=== PATIENT | female | born 1970 | race Caucasian/White ===

== ENCOUNTER 2017-02-01 16:53 | Emergency (ER) | payer BC ==
[~2017-02-01] VITALS: Ht 162.6 cm; Wt 91.3 kg
[2017-02-01 18:16] LABS: HEMATOCRIT 36.3 % (36.0-46.0); MCH 30.9 PG (29.0-34.0); MCHC 34.7 G/DL (30.0-36.0); MEAN PLAT.VOLUME 10.7 uM^3 (9.5-12.4); PLATELET COUNT 228 K/uL (156-360); RBC DIS.WIDTH-CV 11.9 % (11.8-14.6); RBC DIS.WIDTH-SD 38.1 % (39-53); RED BLOOD COUNT 4.08 M/uL (3.80-5.20); WHITE BLOOD COUNT 8.9 K/uL (4.1-10.2)
[2017-02-01 18:25] LABS: CHLORIDE 105 mEq/L (99-109); POTASSIUM 3.8 mEq/L (3.7-5.4); SODIUM 140 mEq/L (136-147)
[2017-02-01 18:27] LABS: GLUCOSE 89 mg/dL (70-99)
[2017-02-01 18:28] LABS: ANION GAP 10 MEQ/L (2-14)
[2017-02-01 18:30] LABS: GFR ESTIMATE (CALCULATED) > 59 mL/min/
[2017-02-01 18:31] LABS: UREA NITROGEN (BUN) 20 mg/dL (9-23)
[2017-02-01 18:38] LABS: TROP-I INTERPRETATION NEGATIVE; TROPONIN-I < 0.01 ng/mL (0.0-0.30)
[2017-02-01 19:44] LABS: D-DIMER ELISA < 150.00 ng/mLDDU (<230)
[2017-02-01 20:12] LABS: QUANTITATIVE HCG < 4.0 MIU/ML
[2017-02-01 21:48] LABS: TROP-I INTERPRETATION NEGATIVE; TROPONIN-I < 0.01 ng/mL (0.0-0.30)
[2017-02-01] MEDS ORDERED: ATARAX,VISTARIL50 MG PO (21:50)
[2017-02-01 22:39] VITALS: BP 128/93
== END 2017-02-01 22:40 | disposition home or self-care (01) ==
LOC: EXP 16:53 → EME 16:53 → EXP 22:40
PROVIDERS: Physician Assistant
DX: F41.9 Anxiety disorder, unspecified (principal); R07.9 Chest pain, unspecified; R06.02 Shortness of breath; I10 Essential (primary) hypertension; Z87.891 Personal history of nicotine dependence; Z88.0 Allergy status to penicillin; Z88.6 Allergy status to analgesic agent; Z88.8 Allergy status to other drugs, medicaments and biological substances
CPT/HCPCS: 71020; 80048; 84484; 84702; 85027; 85379; 93005; 99281; 99284